=== PATIENT | male | born 1980 | race American Indian/Alaskan Native ===

== ENCOUNTER 2017-04-14 07:01 | Emergency (ER) | payer OTHER ==
[2017-04-14 08:31] LABS: Eosinophils % (Auto) 0.2 % (0.0-4.3); Hematocrit 44.6 % (35.5-45.6); Hemoglobin 14.8 gm/dl (11.8-15.2); Mean Corpuscular HGB Conc 33 % (32-34); Mean Corpuscular Hemoglobin 30 pg (28-32); Mean Corpuscular Volume 89 fl (84-94); Platelet Count 295 K/mm3 (140-440); Red Blood Count 5.01 M/mm3 (3.65-5.03); Red Cell Distribution Width 15.2 % (13.2-15.2); White Blood Count 11.3 K/mm3 (4.5-11.0)
[2017-04-14 08:34] LABS: Urine Drugs of Abuse Note Disclamer
[2017-04-14 08:40] LABS: Anion Gap 17 mmol/L; BUN/Creatinine Ratio 10.83; Blood Urea Nitrogen 13 mg/dL (9-20); Calcium 8.9 mg/dL (8.4-10.2); Carbon Dioxide 26 mmol/L (22-30); Chloride 97.4 mmol/L (98-107); Glucose 118 mg/dL (75-100); Potassium 3.7 mmol/L (3.6-5.0); Sodium 137 mmol/L (137-145)
[2017-04-14 08:48] LABS: Bilirubin,Urine NEG (Negative); Blood,Urine NEG (Negative); Ketones,Urine NEG (Negative); Leukocyte Esterase,Urine NEG (Negative); Mucus,Urine 1+ /HPF; Nitrite,Urine NEG (Negative)
--- NOTE | 2017-04-14 09:36 | Emergency Department Report ---
HPI - General Chief Complaint: Alcohol Time Seen by Provider: 04/14/17 09:28 - HPI HPI: PATIENT IS HERE TO OBTAIN MEDICAL CLEARANCE FOR [facility] DETOX FOR COCAINE AND ALCOHOL ABUSE. STATES HE USES THESE SUBSTANCES DAILY AND NEEDS HELP QUITTING HIS ADDICTION. PATIENT DENIES ANY PAST MEDICAL HISTORY OF HTN OR DIABETES. DENIES ANY PAIN. ED Past Medical Hx - Past Medical History Previous Medical History?: No - Surgical History Additional Surgical History: HERNIA REPAIR - Family History Family history: hypertension - Social History Smoking Status: Current Every Day Smoker Substance Use Type: Cocaine - Medications Home Medications: Home Medications Medication Instructions Recorded Confirmed Last Taken Type No Known Home Medications [No 04/14/17 04/14/17 Unknown History Reported Home Medications] ED Review of Systems ROS: Stated complaint: DETOX Other details as noted in HPI Comment: All other systems reviewed and negative Constitutional: no symptoms reported Respiratory: no symptoms reported Cardiovascular: as per HPI Physical Exam - Physical Exam Vital Signs: Vital Signs 04/14/17 04/14/17 07:47 09:26 Temperature 98.3 F Pulse Rate 94 H Respiratory 16 20 Rate Blood Pressure 121/80 O2 Sat by Pulse 100 Oximetry Physical Exam: gen: alert and oriented x3, Tearful heent: perrla, eomi cv: rrr, nl s1, s2 lungs: cta bila abd: s,nt,nd, pos bs ext: no edema gu: pt refused neuro: no deficits psych: NORMAL MOOD skin: normal turgor ED Course Vital Signs 04/14/17 04/14/17 07:47 09:26 Temperature 98.3 F Pulse Rate 94 H Respiratory 16 20 Rate Blood Pressure 121/80 O2 Sat by Pulse 100 Oximetry ED Medical Decision Making - Lab Data Result diagrams: 04/14/17 08:13 04/14/17 08:13 Critical care attestation.: If time is entered above; I have spent that time in minutes in the direct care of this critically ill patient, excluding procedure time. ED Disposition Clinical Impression: Polysubstance abuse, Medical clearance for psychiatric admission Disposition: [id number] TO HOME OR SELFCARE Is pt being admited?: No Does the pt Need Aspirin: No Condition: Stable Referrals: PRIMARY CARE, [Primary Care Provider] - 3-5 Days
[2017-04-14 11:12] VITALS: BP 118/82
== END 2017-04-14 11:12 | disposition home or self-care (01) ==
LOC: ED 07:01
DX: F14.10 Cocaine abuse, uncomplicated (principal); F17.210 Nicotine dependence, cigarettes, uncomplicated
CPT/HCPCS: 36415; 80048; 80307; 81001; 85025; 99283; G0480; 80320